=== PATIENT | male | born 1960 | race Caucasian/White ===

== ENCOUNTER → 2016-11-27 | Outpatient (CLI) | payer MEDICARE ==
[~2016-11-27] MED LIST: CALC-666 PO; FLUD0.1T PO; FOLI-17 PO; FURO20TA3 PO; FURO80TA77 PO; GABA100C8 PO; LACT10SO28 PO; LACT20SO13 PO; NADO20TA PO; OMEP-110 PO; OXYC5TAB3 PO; PANT40TA5 PO; POTA500T PO; PROP10TA PO; RIFA550T PO; SPIR100T2 PO; TRAM50TA2 PO
== END | disposition home or self-care (01) ==
LOC: RAD 08:06
DX: K74.60 Unspecified cirrhosis of liver (principal); K76.6 Portal hypertension; K80.20 Calculus of gallbladder without cholecystitis without obstruction; R16.1 Splenomegaly, not elsewhere classified; I86.8 Varicose veins of other specified sites
CPT/HCPCS: 76700